=== PATIENT | male | born 1940 | race Caucasian/White ===

== ENCOUNTER 2017-03-13 08:00 | Outpatient (RCR) | payer MEDICARE, OTHER ==
[~2017-03-13 08:00] MED LIST: AMARYL 2MG T2 MG/TAB PO; ASPIRIN 81M81 MG/TA2 PO; CARDI-OMEGA1000 MG PO; CEFTIN500 MG PO; EFUDEX40 GM TP; FLOMAX 0.40.4 MG/CAP PO; GLUCOPHAGE500 MG/TAB PO; LIPITOR 10MG10 MG; LIPITOR20 MG PO; PROSCAR 5MG5 MG PO; RAPAFLO8 MG PO; VITAMIN B-1000 MCG/T PO; ZESTRIL 10MG10 MG PO
== END 2017-03-18 10:15 | disposition home or self-care (01) ==
LOC: WSPT 08:00
DX: M25.811 Other specified joint disorders, right shoulder (principal)
CPT/HCPCS: G8984-GP; G8985-GP; G8986-GP

== ENCOUNTER 2020-09-26 13:31 | Day surgery (SDC) | payer MEDICARE, OTHER ==
[~2020-09-26] VITALS: Ht 177.8 cm; Wt 78.2 kg
[2020-09-26] VITALS (11 sets, daily range): BP systolic 122–168; BP diastolic 52–82; PULSE 46–71; TEMP 97.5–98.2
--- NOTE | 2020-09-26 14:00 | NUR ---
Patient's blood glucose is 83. This is reported to ADIEL Quinn. Orders are recieved for LR IVF.
[2020-09-26] MEDS ORDERED: TYLENOL 325MG325 MG PO (14:02)
[2020-09-26] MEDS ORDERED: PRILOSEC10 MG PO (14:03)
[2020-09-26] MEDS ORDERED: LIPITOR20 MG PO (14:04)
[2020-09-26] MEDS ORDERED: ASPIRIN 81M81 MG/TA2 PO (14:04)
[2020-09-26] MEDS ORDERED: B-121000 MCG PO (14:04)
[2020-09-26] MEDS ORDERED: CRANBERRY500 M3 PO (14:04)
[2020-09-26] MEDS ORDERED: ZYRTEC5 MG PO (14:05)
[2020-09-26] MEDS ORDERED: PEPCID 20MG TAB20 MG PO (14:05)
[2020-09-26] MEDS ORDERED: FLOMAX 0.40.4 MG/CAP PO (14:05)
[2020-09-26] MEDS ORDERED: AMARYL4 MG PO (14:06)
[2020-09-26] MEDS ORDERED: GLUCOPHAGE XR500 M1 PO (14:06)
[2020-09-26] MEDS ORDERED: PRINIVIL40 MG PO (14:06)
--- NOTE | 2020-09-26 14:11 | NUR ---
Patient arrives to [facility] independently with steady gait. He is alert and oriented. Procedure is confirmed. He denies any questions and verbalizes understanding. VSS and WNL on room air. Breath sounds are clear bilaterally to auscultation. Clear S1S2 heart tones heard with regular rate noted. PERRLA +2 pupils bilaterally. +2 radial pulses bilaterally. +2 DP/PT pulses. Denies pain, numbness, or tingling.
[2020-09-26] MEDS ORDERED: PYRIDIUM 100MG100 MG PO (15:28)
--- NOTE | 2020-09-26 17:00 | NUR ---
Patient arrived to floor from PACU via bed. Patient is sleepy but rouses easily, appears to be alert and oriented while awake. CBI at a moderate rate, drainage in calvillo bag appears to be saline. CBI titrated. Post op checks initated. Patient denies needs, call light in reach, bed alarm on.
--- NOTE | 2020-09-26 21:15 | NUR ---
PT YELLS OUT FOR HELP. WANTS HIS BED LAYED DOWN AND WONDERED WHERE EVERYONE WAS. DENIES PAIN. HAS CBI TO [address], DRAINING PINK URINE. CATHETER CARE PROVIDED. HAS SL TO LEFT HAND, FLUSHES EASILY. HAS BED ALARM ON FOR SAFETY. TAKES HS MEDS WITH ENCOURAGEMENT.
--- NOTE | 2020-09-27 04:15 | NUR ---
PT SETS BED ALARM OFF. UNSURE WHERE HE IS AND WONDERS WHERE HIS FAMILY IS. REORIENTS EASILY. CBI AT SLOW RATE, URINE PINK. DENIES PAIN AT THIS TIME.
[2020-09-27 04:30] VITALS: BP 114/51; PULSE 58; TEMP 98
--- NOTE | 2020-09-27 06:00 | NUR ---
BLOOD SUGAR 66, APPLE JUICE GIVEN.
--- NOTE | 2020-09-27 08:00 | NUR ---
Patient resting in bed at this time. CBI in place running at a slow rate, urine is pale pink and clear. Patient is confused but plesant this morning. Patient denies pain or needs, call light within reach, bed alarm on.
[2020-09-27 08:15] VITALS: BP 174/65; PULSE 66; TEMP 97.4
--- NOTE | 2020-09-27 08:30 | NUR ---
Catheter primed and pulled per order. Patient tolerated procedure well. Patient educated on using a urinal and calling to report each void. Patient verbalized understanding. call light within reach, bed alarm on.
--- NOTE | 2020-09-27 10:00 | NUR ---
Patient's confusion is persistant this morning. Patient is unable or unwilling to remember to use the call light, continues to get up unassisted and is agitated that the bed alarm is on. Patient has been able to void a few times and urine is incerasingly yellow and clear. Bed alarm on, call light within reach.
--- NOTE | 2020-09-27 10:39 | NUR ---
NEDRA met with the patient to discuss discharge plan. The patient lives alone in [place]. He states that his in January and that his son, Pepe (ph#[phone]), lives in [place]. He reports independence with ADLs and has a cane, walker, and wheelchair. He states that he also has private duty services from [facility]. They come once a day and make his meals. The patient's PCP is Dr. Courtney Wright and he receives his medications from [facility]. He reports no difficulties obtaining his meds. The patient's DPOA-HC is in EMR. It designates his late and his son, Pepe, as the alternate. The patient plans to return home upon discharge. He states that his son plans to transport him back home. NEDRA contacted the patient's son, Pepe, and reviewed d/c plan. Pepe confirmed the above information. He had no other questions for NEDRA. No additional needs at this time.
[2020-09-27 11:32] VITALS: BP 138/81; PULSE 85; TEMP 98
--- NOTE | 2020-09-27 13:00 | NUR ---
Discharge teaching completed. INT removed, catheter intact, hemostasis achieved. Patient has completed 6 cup routine and son was called. Upon arrival patient was escorted to ED entrance where he entered a private vehicle, call light within reach.
== END 2020-09-27 13:00 | disposition home or self-care (01) ==
LOC: INPTSU 13:31 → SDCO 13:31 → SURG 13:31 → EDSTATUS 15:30 → SURG 15:30 → INPTSU 17:00 → SURG 17:00 → SDCO 09-27 13:00
DX: N40.1 Benign prostatic hyperplasia with lower urinary tract symptoms (principal); R39.14 Feeling of incomplete bladder emptying; R35.1 Nocturia; R33.8 Other retention of urine; R39.12 Poor urinary stream; K21.9 Gastro-esophageal reflux disease without esophagitis; I10 Essential (primary) hypertension; E11.42 Type 2 diabetes mellitus with diabetic polyneuropathy; Z79.84 Long term (current) use of oral hypoglycemic drugs; Z87.891 Personal history of nicotine dependence; Z88.6 Allergy status to analgesic agent; E78.5 Hyperlipidemia, unspecified; Z20.828 Contact with and (suspected) exposure to other viral communicable diseases
CPT/HCPCS: J2250; J2704; J3010; J7120

== ENCOUNTER 2024-01-17 13:33 | Emergency (ER) | payer MEDICARE, OTHER ==
[~2024-01-17] VITALS: Ht 177.8 cm; Wt 72.7 kg
[~2024-01-17 13:33] MED LIST changes: +AMARYL4 MG PO; +B-121000 MCG PO; +CRANBERRY500 M3 PO; +GLUCOPHAGE XR500 M1 PO; +PEPCID 20MG TAB20 MG PO; +PRILOSEC10 MG PO; +PRINIVIL40 MG PO; +PYRIDIUM 100MG100 MG PO; +TYLENOL 325MG325 MG PO; +ZYRTEC5 MG PO
[2024-01-17] MEDS ORDERED: LR 1,000 ML IV SCH ×2 (13:38→14:00)
[2024-01-17] MEDS ORDERED: fentaNYL 50 MCG/ML 2 ML VIAL IV SCH (13:39)
[2024-01-17] MEDS ORDERED: Rocuronium 50 MG/5 ML Multi-Dose VIAL IV SCH (13:43)
[2024-01-17] MEDS ORDERED: Etomidate 20 MG/10 ML VIAL IV SCH (13:43)
[2024-01-17] MEDS ORDERED: fentaNYL 100 ML IV SCH (13:46)
[2024-01-17 13:58] VITALS: TEMP 99.1
[2024-01-17 14:06] LABS: COLLECTION METHOD CATHETER
[2024-01-17 14:10] LABS: HEMATOCRIT 43.3 % (42.0-52.0); HEMOGLOBIN 14.4 g/dl (13.5-18.0); MEAN CELL VOLUME 92 fl (80.0-100.0); MEAN CORPUSCULAR HEMOGLOBIN 31 pg (27-31); MEAN CORPUSCULAR HGB CONC 33 g/dl (33.0-37.0); MEAN PLATELET VOLUME 11.3 fl (7.4-10.4); PLATELET COUNT 452 K/mm3 (130-400); RED BLOOD COUNT 4.71 M/mm3 (4.20-5.60); REDCELL DISTRIBUTION WIDTH-CV 13.4 % (11.5-14.5)
[2024-01-17] MEDS ORDERED: Midazolam 100 ML IV ONE (14:30)
[2024-01-17] MEDS ORDERED: ceFAZolin 2 G in Water For Injection,Sterile 20 ML IV ONE (14:30)
[2024-01-17 14:32] LABS: ALBUMIN 3.1 gm/dL (3.4-4.8); BILIRUBIN,TOTAL 0.4 mg/dL (0.2-1.2); CALCIUM 8.8 mg/dL (8.4-10.2); CREATININE, serum 1.77 mg/dL (0.72-1.25); MAGNESIUM 1.7 mg/dL (1.6-2.6); TOTAL PROTEIN 5.9 gm/dL (6.2-8.1)
[2024-01-17 14:45] LABS: PH 5.5 (5.0-8.5); URINE APPEARANCE CLEAR (CLEAR/HAZY); URINE BLOOD 1+ (NEGATIVE); URINE COLOR YELLOW (YELLOW); URINE GLUCOSE 3+ (NEGATIVE); URINE KETONE NEGATIVE (NEGATIVE); URINE NITRATE NEGATIVE (NEGATIVE); URINE PROTEIN(semi-quant) 2+ (NEGATIVE); URINE UROBILINOGEN 0.2 E.U/dL (0.2-1.0)
[2024-01-17 14:53] VITALS: BP 209/124; PULSE 103
[2024-01-17 15:09] LABS: EOSINOPHIL 2 % (0-4); LYMPHOCYTE 48 % (20.0-51.0); NEUTROPHILS 47 % (42.0-75.2)
== END 2024-01-17 15:38 | disposition home or self-care (01) ==
LOC: COL.ER 13:33
PROVIDERS: Family Medicine
DX: T21.3 Burn of third degree of trunk (principal); T24.301A Burn of third degree of unspecified site of right lower limb, except ankle and foot, initial encounter; T24.302A Burn of third degree of unspecified site of left lower limb, except ankle and foot, initial encounter; T20.27XA Burn of second degree of neck, initial encounter; T23.202A Burn of second degree of left hand, unspecified site, initial encounter; T23.201A Burn of second degree of right hand, unspecified site, initial encounter; T31.40 Burns involving 40-49% of body surface with 0% to 9% third degree burns; Z23 Encounter for immunization; X08.8XXA Exposure to other specified smoke, fire and flames, initial encounter; Y92.59 Other trade areas as the place of occurrence of the external cause
CPT/HCPCS: A4314; J0690; J2251; J3010; J7120